=== PATIENT | female | born 1945 | race Caucasian/White ===

== ENCOUNTER 2016-07-05 12:43 | Emergency (ER) | payer MEDICARE | END 2016-07-05 13:08 | disposition home or self-care (01) | LOC: CED 12:43 | DX: M25.511 Pain in right shoulder (principal); I10 Essential (primary) hypertension; E78.5 Hyperlipidemia, unspecified; M19.90 Unspecified osteoarthritis, unspecified site; Z90.710 Acquired absence of both cervix and uterus; Z90.49 Acquired absence of other specified parts of digestive tract; Z90.89 Acquired absence of other organs; Z88.2 Allergy status to sulfonamides; Z87.891 Personal history of nicotine dependence | CPT/HCPCS: 99283 ==

== ENCOUNTER → 2016-09-10 | Outpatient (CLI) | payer MEDICARE ==
--- NOTE | ~2016-09-10 | MR32 ---
[facility] A Service of [facility] & [facility] RADIOLOGY TEXT RESULTS PATIENT: LISA EVANS [facility] 43 UNIT #: [id number] AGE: [address]: BRENDA PARKER MD SEX: F ORDER DR: [id number] [facility] [address] [place], [place] [address] [id number] O MR#: [id number] Acc #: [id number] NAME: LISA EVANS : 1945 SEX: F STUDY DATE/TIME: 09/10/2016 15:03 UNIT: [facility] ROOM: STUDY DESCRIPTION: MR Cervical Wo Contrast Attending Physician: Brenda Parker M.D. Referring Physician: Brenda Parker M.D. Ordering Physician: Brenda Parker M.D. Primary Care Physician: Brenda Parker M.D. [facility]ENTER REPORT This report is preliminary unless electronic signature is present. EXAM MRI of the cervical spine without contrast dated 09/10/2016. COMPARISON None. HISTORY Neck pain with severe right arm and right hand pain for 2 months. Patient says that the right index finger is numb for the last 4 years. FINDINGS Multisequence multiplanar imaging of the cervical spine was obtained without contrast. Disc osteophyte complex are at multiple levels, relatively worse at C5-6 and C6-7. Cord demonstrates normal course, caliber and signal. Imaged posterior fossa and craniovertebral junction are unremarkable. Pre and paravertebral soft tissues do not demonstrate any significant abnormality. C2-3: Mild degenerative disc signal loss but otherwise unremarkable. C3-4: Concentric disc bulge without significant canal stenosis or neural foraminal narrowing. C4-5: Concentric disc bulge with minimal bilateral facet changes. No significant neural foraminal narrowing. C5-6: Concentric disc bulge with small central protrusion and mild mass effect on the adjacent thecal sac. No neural foraminal narrowing. Mild bilateral facet changes are noted, slightly worse on the left. Small central protrusion is present. C6-7: Concentric disc bulge with superimposed tiny left central protrusion. No significant canal stenosis. Mild bilateral facet changes [facility] A Service of [facility] & [facility] RADIOLOGY TEXT RESULTS PATIENT: LISA EVANS [facility] 43 UNIT #: [id number] AGE: [address]: BRENDA PARKER MD SEX: F ORDER DR: are noted with mild left neural foraminal encroachment. C7-T1: Mild degenerative disc signal loss without canal stenosis or neural foraminal narrowing. IMPRESSION 1. Degenerative changes are noted at multiple levels, slightly worse at C5-6 and C6-7 with small central protrusions and borderline size canal. 2. No significant neural foraminal narrowing or cord abnormality. Dictated by... Issa Stone M.D. THIS IS AN ELECTRONICALLY VERIFIED REPORT Issa Stone M.D. at 09/12/2016 4:26 PM CPR/rnr TD: 09/11/2016 14:18 JOB #: [id number] MRI [facility]ENTER REPORT Page 1 of 1 COPY
== END | disposition home or self-care (01) ==
LOC: CMRI 09-06 13:00
DX: M54.2 Cervicalgia (principal); M79.2 Neuralgia and neuritis, unspecified; M47.892 Other spondylosis, cervical region; M50.222 Other cervical disc displacement at C5-C6 level; M50.223 Other cervical disc displacement at C6-C7 level
CPT/HCPCS: 72141